=== PATIENT | male | born 1970 | race Caucasian/White ===

== ENCOUNTER → 2020-08-29 | Outpatient (CLI) | payer OTHER ==
[~2020-08-29] MED LIST: AMLO-150 PO; CETI10TA18 PO; CHOL10003 PO; LOSA50TA14 PO
[2020-08-29 15:29] LABS: BASOPHILS % (AUTO) 1 % (0-1); EOSINOPHILS % (AUTO) 1 % (1-7); LYMPHOCYTES % (AUTO) 18 % (22-44); MD NO; MEAN CORPUSCULAR HGB CONC 33.9 g/dL (33.2-36.2); MEAN PLATELET VOLUME 8.9 fL (7.4-10.4); MONOCYTES % (AUTO) 10 % (2-9); NEUTROPHILS % (AUTO) 71 % (42-75); PLATELET COUNT 223 x10^3/uL (130-400)
[2020-08-29 15:35] LABS: INTERNATIONAL NORMALIZED RATIO 1.09 (0.93-1.1); PROTHROMBIN TIME 11.5 Seconds (9.6-11.5)
[2020-08-29 15:47] LABS: ANION GAP 7 mmol/L (5-15); CALCIUM 8.5 mg/dL (8.5-10.1); CHLORIDE 110 mmol/L (98-107)
[2020-08-29 15:48] LABS: ALANINE AMINOTRANSFERASE 20 U/L (12-78); ALKALINE PHOSPHATASE 94 U/L (45-117); BILIRUBIN,TOTAL 0.5 mg/dL (0.2-1.0); CREATININE 1.15 mg/dL (0.7-1.3); TOTAL PROTEIN 7.3 g/dL (6.4-8.2)
== END | disposition home or self-care (01) ==
LOC: STAR 14:24
PROVIDERS: ATTEND Orthopaedic Surgery
DX: Z01.818 Encounter for other preprocedural examination (principal); Z96.652 Presence of left artificial knee joint
CPT/HCPCS: 36415; 80053; 83036; 85025; 85610; 85730; 87081; 87147; 87806; G0475

== ENCOUNTER 2020-09-03 08:29 | Inpatient (IN) | payer OTHER ==
[~2020-09-03] VITALS: Ht 175.3 cm; Wt 96.4 kg
[2020-09-03 09:12] VITALS: BP 122/82
[2020-09-03] MEDS ORDERED: CHLORHEXIDINE 15 ML UDC MM ONE (09:30)
[2020-09-03] MEDS ORDERED: GABAPENTIN 300 MG CAPSULE PO ONE (09:30)
[2020-09-03] MEDS ORDERED: LACTATED RINGERS 1,000 ML IV SCH (09:30)
[2020-09-03] MEDS ORDERED: ACETAMINOPHEN 500 MG TABLET PO ONE (09:30)
[2020-09-03] MEDS ORDERED: VANCOMYCIN PER PHARMACY MC ONE (09:30)
[2020-09-03] MEDS ORDERED: KETOROLAC 60 MG/2 ML ONE (09:52)
[2020-09-03] MEDS ORDERED: TRANEXAMIC ACID 100 MG/ML, 10ML ONE (09:53)
[2020-09-03] MEDS ORDERED: EPINEPHRINE 1 MG/ML, 1ML ONE (09:53)
[2020-09-03] MEDS ORDERED: ROPIvacaine/PF 0.2%, 20 ML ONE (09:53)
[2020-09-03] MEDS ORDERED: SODIUM CHLORIDE 0.9% 50 ML ONE (09:53)
[2020-09-03] MEDS ORDERED: VANCOMYCIN 1,600 MG in SODIUM CHLORIDE 0.9% 250 ML IV ONE (10:00)
[2020-09-03] MEDS ORDERED: METOCLOPRAMIDE 5 MG/ML, 2ML ONE (10:08)
[2020-09-03] MEDS ORDERED: PROPOFOL 10 MG/ML, 20ML ONE (10:08)
[2020-09-03] MEDS ORDERED: GLYCOPYRROLATE 0.2MG/1ML, 5ML ONE (10:08)
[2020-09-03] MEDS ORDERED: ONDANSETRON 2MG/ML, 2ML ONE (10:08)
[2020-09-03] MEDS ORDERED: NEOSTIGMINE 1 MG/ML, 10ML ONE (10:08)
[2020-09-03] MEDS ORDERED: SUCCINYLCHOLINE 20 MG/ML, 10ML ONE (10:08)
[2020-09-03] MEDS ORDERED: DEXAMETHASONE 4 MG/ML, 1ML ONE (10:08)
[2020-09-03] MEDS ORDERED: CEFAZOLIN 1,000 MG ONE (10:08)
[2020-09-03] MEDS ORDERED: ROCURONIUM 10MG/ML,5ML ONE (10:08)
[2020-09-03] MEDS ORDERED: FENTANYL PF 250 MCG/5ML ONE (10:32)
[2020-09-03] MEDS ORDERED: MIDAZOLAM 1 MG/ML, 2ML ONE (11:36)
[2020-09-03] MEDS ORDERED: OXYcodone 5 MG/5 ML ORAL.SOL UDC PO PRN (12:00)
[2020-09-03] MEDS ORDERED: PROMETHAZINE 25 MG/ML, 1ML IVPush PRN (12:00)
[2020-09-03] MEDS ORDERED: hydrALAzine 20 MG/ML, 1ML IV PRN (12:00)
[2020-09-03] MEDS ORDERED: FENTANYL PF 100 MCG/2ML IV PRN (12:00)
[2020-09-03] MEDS ORDERED: HYDROmorphone 1 MG/ML, 1ML INJ IVPush PRN (12:00)
[2020-09-03] MEDS ORDERED: EPHEDRINE 50 MG/ML, 1ML IM PRN (12:00)
[2020-09-03] MEDS ORDERED: LABETALOL 5MG/ML, 20ML IV PRN (12:00)
[2020-09-03] MEDS ORDERED: HALOPERIDOL 5 MG/ML IV PRN (12:00)
[2020-09-03] MEDS ORDERED: DIPHENHYDRAMINE 50 MG/ML, 1ML IVPush PRN (12:00)
[2020-09-03] MEDS ORDERED: LORazepam 2 MG/ML, 1ML IVPush PRN (12:00)
[2020-09-03] MEDS ORDERED: EPHEDRINE 50 MG/ML, 1ML IVPush PRN (12:00)
[2020-09-03] MEDS ORDERED: ACETAMINOPHEN 325 MG TABLET PO PRN (12:00)
[2020-09-03] MEDS ORDERED: MEPERIDINE/PF 25MG/0.5ML IVPush PRN (12:00)
[2020-09-03] MEDS ORDERED: METHOCARBAMOL 1,000 MG in DEXTROSE 5% 100 ML IV PRN (12:00)
[2020-09-03] MEDS ORDERED: FENTANYL PF 100 MCG/2ML ONE (12:07)
[2020-09-03] MEDS ORDERED: DIPHENHYDRAMINE 25 MG CAPSULE PO PRN (12:30)
[2020-09-03] MEDS ORDERED: OXYcodone/APAP 10/325MG TABLET PO PRN (12:30)
[2020-09-03] MEDS ORDERED: DIAZEPAM 5 MG TABLET PO PRN (12:30)
[2020-09-03] MEDS ORDERED: ONDANSETRON 2MG/ML, 2ML IVPush PRN (12:30)
[2020-09-03] MEDS ORDERED: ONDANSETRON 4 MG TABLET PO PRN (12:30)
[2020-09-03] MEDS ORDERED: PROMETHAZINE 12.5 MG SUPP PR PRN (12:30)
[2020-09-03] MEDS ORDERED: HYDROcodone/APAP 5/325 TABLET PO PRN (12:30)
[2020-09-03] MEDS ORDERED: TRANEXAMIC ACID 1,000 MG in SODIUM CHLORIDE 0.9% 100 ML IVPB ONE (12:30)
[2020-09-03] MEDS ORDERED: OXYcodone/APAP 5/325MG TABLET PO PRN (12:30)
[2020-09-03] MEDS ORDERED: VANCOMYCIN PMX 1GM/200ML 200 ML IVPB ONE (12:30)
[2020-09-03] MEDS ORDERED: MORPHINE SULFATE 4 MG/ML, 1ML IVPush PRN (12:30)
[2020-09-03] MEDS ORDERED: MAGNESIUM HYDROXIDE 8%, 30ML UDC PO PRN (12:30)
[2020-09-03] MEDS ORDERED: OXYcodone 5 MG/5 ML ORAL.SOL UDC ONE (12:56)
[2020-09-03 13:45] VITALS: BP 118/72
[2020-09-03] MEDS ORDERED: CEFAZOLIN PMX 1GM/50ML 50 ML IVPB SCH (14:00)
[2020-09-03] MEDS ORDERED: KETOROLAC 30 MG/1 ML IV SCH (14:00)
[2020-09-03] MEDS ORDERED: ASPI81TA45 PO (14:58)
[2020-09-03] MEDS ORDERED: DOCU100C33 PO (14:58)
[2020-09-03] MEDS ORDERED: TRAM50TA2 PO (14:58)
[2020-09-03] MEDS ORDERED: DOCUSATE 100 MG CAPSULE PO SCH (21:00)
[2020-09-04] MEDS ORDERED: ASPIRIN 81 MG TABLET EC PO SCH ×2 (06:00→18:00)
[2020-09-04] MEDS ORDERED: DEXAMETHASONE 4 MG/ML, 1ML IVPush SCH (06:00)
[2020-09-04] MEDS ORDERED: AMLODIPINE 5 MG TABLET PO SCH (09:00)
[2020-09-04] MEDS ORDERED: LOSARTAN 50MG TABLET PO SCH (09:00)
== END 2020-09-03 16:46 | disposition home or self-care (01) | DRG 489 ==
LOC: OUT 08:29 → ORIP 12:26 → 2NW 13:52 → DCLOUNGE 16:38
PROVIDERS: ADMIT Orthopaedic Surgery; ATTEND Orthopaedic Surgery
PROC: 0SUW09Z Supplement Left Knee Joint, Tibial Surface with Liner, Open Approach (ICD-10-PCS; 2020-09-03)
PROC: 0SPD09Z Removal of Liner from Left Knee Joint, Open Approach (ICD-10-PCS; principal; 2020-09-03 11:15)
DX: T84.093A Other mechanical complication of internal left knee prosthesis, initial encounter (principal); Y79.2 Prosthetic and other implants, materials and accessory orthopedic devices associated with adverse incidents; Z20.828 Contact with and (suspected) exposure to other viral communicable diseases
CPT/HCPCS: 87635; J0171; J0690; J1100; J1885; J2250; J2405; J2704; J2710; J2795; J3010; J3370; C1776; J0330; J2765; J7050; J7120